=== PATIENT | female | born 1985 | race Caucasian/White ===

== ENCOUNTER 2017-08-22 17:49 | Emergency (ER) | payer SELFPAY ==
[2017-08-22 17:56] VITALS: BP 132/75; PULSE 83; RESP 16; TEMP 36.7; O2SAT 99; BMI 24.6
--- NOTE | 2017-08-22 18:01 | ED.FEMALEGU ---
HPI - Female Genitourinary <STEPH Mckeon - Last Filed: 08/22/17 18:51> General Chief complaint: Urogenital-Female Stated complaint: STATES UTI Time Seen by Provider: 08/22/17 17:55 Source: patient Mode of arrival: ambulatory Limitations: no limitations History of Present Illness HPI Narrative: Patient presents with 1 week of urgency frequency and dysuria. She states she has a history of kidney infections and is concerned that she has a urinary tract infection turning into another kidney infection. She states that she has had fevers, but is unsure of temperature. She complains of chills. She complains of slight nausea but denies vomiting or diarrhea. She denies any flank pain but complains of a lower back ache. She was planning on waiting till Wednesday to go the walk-in, but was afraid she was getting sicker. Denies any vaginal complaints. Related Data Previous Rx's Medication Instructions Recorded nitrofurantoin monohyd/m-cryst 100 mg PO Q12H #14 cap 08/22/17 [Macrobid] Allergies Allergy/AdvReac Type Severity Reaction Status Date / Time No Known Allergies Allergy Uncoded 05/19/17 12:05 Review of Systems <STEPH Mckeon - Last Filed: 08/22/17 18:51> Review of Systems GENERAL: See HPI HEENT: Denies sinus pain, ear pain, sore throat, difficulty swallowing, dizziness. RESPIRATORY: Denies dyspnea, cough, wheezing, hemoptysis, sputum. CARDIOVASCULAR: Denies chest pain, palpitations, orthopnea, edema, GASTROINTESTINAL: Denies nausea, vomiting, abdominal pain, diarrhea, constipation, melena. : See HPI MUSCULOSKELETAL: denies weakness, joint pain, or bony pain SKIN: Denies rash, skin lesions, or other NEUROLOGIC: Denies weakness, headache, numbness, change in speech, confusion, seizures, incoordination. PSYCHIATRIC: No concerning psychosocial issues. 12 point review of systems is negative except for those stated above Exam <STEPH Mckeon - Last Filed: 08/22/17 18:51> Narrative Exam Narrative: GENERAL: This is a well-nourished, well-developed patient, in no acute distress with at bedside. HEAD: Atraumatic. Normocephalic. No temporal or scalp tenderness. EYES: Pupils equal round and reactive. Extraocular motions intact. No scleral icterus. No injection or drainage. ENT: Nose without bleeding, purulent drainage or septal hematoma. Throat without erythema, tonsillar hypertrophy or exudate. Uvula midline. Airway patent. NECK: Trachea midline. No JVD or lymphadenopathy. Supple, nontender, no meningeal signs. CARDIOVASCULAR: Regular rate and rhythm without murmurs, gallops, or rubs. RESPIRATORY: Clear to auscultation. Breath sounds equal bilaterally. No wheezes, rales, or rhonchi. GASTROINTESTINAL: Abdomen soft, non-tender, nondistended. No hepato-splenomegaly, or palpable masses. No guarding. No CVA tenderness bilaterally. No pain to suprapubic palpation. EXTREMITIES: No clubbing, cyanosis, or edema. No joint tenderness, effusion, or edema noted. BACK: Nontender without deformity or crepitance. No flank tenderness. NEURO: AOx3. SKIN: No rash or erythema. Initial Vital Signs Initial Vital Signs: Vital Signs Temperature 98.1 F 08/22/17 17:56 Pulse Rate 83 08/22/17 17:56 Respiratory Rate 16 08/22/17 17:56 Blood Pressure 132/75 H 08/22/17 17:56 Pulse Oximetry 99 08/22/17 17:56 <Ministerio Palomares DO - Last Filed: 08/22/17 20:39> Initial Vital Signs Initial Vital Signs: Vital Signs Temperature 98.1 F 08/22/17 17:56 Pulse Rate 83 08/22/17 17:56 Respiratory Rate 16 08/22/17 17:56 Blood Pressure 132/75 H 08/22/17 17:56 Pulse Oximetry 99 08/22/17 17:56 Course <AIDEE Mckeon-REMIGIO - Last Filed: 08/22/17 18:51> Orders Ordered: ED Orders 08/22/17 18:09 Urine Culture Stat Urine Microscopic Stat Discontinued Medications Nitrofurantoin Macrocrystals (Macrobid 100 Mg Capsule) 100 mg PO NOW ONE Stop: 08/22/17 18:35 Last Admin: 08/22/17 18:37 Dose: 100 mg Reevaluation(s) Reevaluation #1: Discussed results of UA with patient. Discussed 1st dose of antibiotics in the emergency department. Discussed return precautions vomiting, diarrhea, flank pain or fevers. Time: 18:30 Vital Signs - 8 hr 08/22/17 17:56 Temperature 98.1 F Pulse Rate 83 Respiratory Rate 16 Blood Pressure 132/75 H Pulse Oximetry 99 <Ministerio Palomares DO - Last Filed: 08/22/17 20:39> Orders Ordered: ED Orders 08/22/17 18:09 Urine Culture Stat Urine Microscopic Stat Discontinued Medications Nitrofurantoin Macrocrystals (Macrobid 100 Mg Capsule) 100 mg PO NOW ONE Stop: 08/22/17 18:35 Last Admin: 08/22/17 18:37 Dose: 100 mg Vital Signs - 8 hr 08/22/17 17:56 Temperature 98.1 F Pulse Rate 83 Respiratory Rate 16 Blood Pressure 132/75 H Pulse Oximetry 99 MDM - Female Genitourinary <AIDEE Mckeon- - Last Filed: 08/22/17 18:51> Lab Data Attestation: I reviewed the patient's lab results. Lab Results 08/22/17 Range/Units 18:09 Urine RBC 1-5/hpf (0-5/HPF) Urine WBC 10-30/hpf H (0-5/HPF) Ur Squamous Epith Cells 0-1 /hpf Urine Bacteria Moderate (10-30) H (None) Ur Culture Indicated? Specimen cultured Micro UA Comment Not Reportable MDM Narrative Medical decision making narrative: Patient presents with complaint of dysuria, urgency and frequency. Her urinalysis reveals bacteria, WBCs and RBCs. In the emergency department she is afebrile normotensive and not tachycardic. Thus I will begin treatment for urinary tract infection with Macrobid. She was given her 1st dose in the emergency department due to pharmacy closing times. She is given a prescription. I discussed at length with her follow-up if worsening or no improvement, vomiting, diarrhea or fever. <Ministerio Palomares DO - Last Filed: 08/22/17 20:39> Lab Data Lab Results 08/22/17 Range/Units 18:09 Urine RBC 1-5/hpf (0-5/HPF) Urine WBC 10-30/hpf H (0-5/HPF) Ur Squamous Epith Cells 0-1 /hpf Urine Bacteria Moderate (10-30) H (None) Ur Culture Indicated? Specimen cultured Micro UA Comment Not Reportable Discharge Plan Departure Patient Disposition: Home, Self-Care Clinical Impression: Urinary tract infection Discharge Date/Time: 08/22/17 18:55 Interventions: ED Discharge Assessment Last Done: 08/22/17 18:55 Instructions: DI for Urinary Tract Infection (UTI) Activity Restrictions/Additional Instructions: I am starting you on an antibiotic for urinary tract infection. Please be re-evaluated by healthcare provider if you develop high fevers, vomiting, diarrhea or flank pain. These are signs of your infection is possibly getting worse. I am sending out a urine culture to make sure that we chose an appropriate antibiotic for your urinary tract infection. Push fluids and take [id number] pain medication as needed. Prescriptions: New nitrofurantoin monohyd/m-cryst [Macrobid] 100 mg capsule 100 mg PO Q12H Qty: 14 RF: 0 <Ministerio Palomares DO - Last Filed: 08/22/17 20:39> Cosign ED Attending Luz Elena Attestation: I was immediately available in the department for consultation. Documentation has been reviewed. I agree with assessment and plan.
--- NOTE | 2017-08-22 18:11 | ED_ITS ---
HPI - Female Genitourinary <STEPH Mckeon - Last Filed: 08/22/17 18:51> General Chief complaint: Urogenital-Female Stated complaint: STATES UTI Time Seen by Provider: 08/22/17 17:55 Source: patient Mode of arrival: ambulatory Limitations: no limitations History of Present Illness HPI Narrative: Patient presents with 1 week of urgency frequency and dysuria. She states she has a history of kidney infections and is concerned that she has a urinary tract infection turning into another kidney infection. She states that she has had fevers, but is unsure of temperature. She complains of chills. She complains of slight nausea but denies vomiting or diarrhea. She denies any flank pain but complains of a lower back ache. She was planning on waiting till Wednesday to go the walk-in, but was afraid she was getting sicker. Denies any vaginal complaints. Related Data Previous Rx's Medication Instructions Recorded nitrofurantoin monohyd/m-cryst 100 mg PO Q12H #14 cap 08/22/17 [Macrobid] Allergies Allergy/AdvReac Type Severity Reaction Status Date / Time No Known Allergies Allergy Uncoded 05/19/17 12:05 Review of Systems <STEPH Mckeon - Last Filed: 08/22/17 18:51> Review of Systems GENERAL: See HPI HEENT: Denies sinus pain, ear pain, sore throat, difficulty swallowing, dizziness. RESPIRATORY: Denies dyspnea, cough, wheezing, hemoptysis, sputum. CARDIOVASCULAR: Denies chest pain, palpitations, orthopnea, edema, GASTROINTESTINAL: Denies nausea, vomiting, abdominal pain, diarrhea, constipation, melena. : See HPI MUSCULOSKELETAL: denies weakness, joint pain, or bony pain SKIN: Denies rash, skin lesions, or other NEUROLOGIC: Denies weakness, headache, numbness, change in speech, confusion, seizures, incoordination. PSYCHIATRIC: No concerning psychosocial issues. 12 point review of systems is negative except for those stated above Exam <STEPH Mckeon - Last Filed: 08/22/17 18:51> Narrative Exam Narrative: GENERAL: This is a well-nourished, well-developed patient, in no acute distress with at bedside. HEAD: Atraumatic. Normocephalic. No temporal or scalp tenderness. EYES: Pupils equal round and reactive. Extraocular motions intact. No scleral icterus. No injection or drainage. ENT: Nose without bleeding, purulent drainage or septal hematoma. Throat without erythema, tonsillar hypertrophy or exudate. Uvula midline. Airway patent. NECK: Trachea midline. No JVD or lymphadenopathy. Supple, nontender, no meningeal signs. CARDIOVASCULAR: Regular rate and rhythm without murmurs, gallops, or rubs. RESPIRATORY: Clear to auscultation. Breath sounds equal bilaterally. No wheezes , rales, or rhonchi. GASTROINTESTINAL: Abdomen soft, non-tender, nondistended. No hepato-splenomegaly , or palpable masses. No guarding. No CVA tenderness bilaterally. No pain to suprapubic palpation. EXTREMITIES: No clubbing, cyanosis, or edema. No joint tenderness, effusion, or edema noted. BACK: Nontender without deformity or crepitance. No flank tenderness. NEURO: AOx3. SKIN: No rash or erythema. Initial Vital Signs Initial Vital Signs: Vital Signs Temperature 98.1 F 08/22/17 17:56 Pulse Rate 83 08/22/17 17:56 Respiratory Rate 16 08/22/17 17:56 Blood Pressure 132/75 H 08/22/17 17:56 Pulse Oximetry 99 08/22/17 17:56 <Ministerio Palomares DO - Last Filed: 08/22/17 20:39> Initial Vital Signs Initial Vital Signs: Vital Signs Temperature 98.1 F 08/22/17 17:56 Pulse Rate 83 08/22/17 17:56 Respiratory Rate 16 08/22/17 17:56 Blood Pressure 132/75 H 08/22/17 17:56 Pulse Oximetry 99 08/22/17 17:56 Course <AIDEE Mckeon-REMIGIO - Last Filed: 08/22/17 18:51> Orders Ordered: ED Orders 08/22/17 18:09 Urine Culture Stat Urine Microscopic Stat Discontinued Medications Nitrofurantoin Macrocrystals (Macrobid 100 Mg Capsule) 100 mg PO NOW ONE Stop: 08/22/17 18:35 Last Admin: 08/22/17 18:37 Dose: 100 mg Reevaluation(s) Reevaluation #1: Discussed results of UA with patient. Discussed 1st dose of antibiotics in the emergency department. Discussed return precautions vomiting , diarrhea, flank pain or fevers. Time: 18:30 Vital Signs - 8 hr 08/22/17 17:56 Temperature 98.1 F Pulse Rate 83 Respiratory Rate 16 Blood Pressure 132/75 H Pulse Oximetry 99 <Ministerio Palomares DO - Last Filed: 08/22/17 20:39> Orders Ordered: ED Orders 08/22/17 18:09 Urine Culture Stat Urine Microscopic Stat Discontinued Medications Nitrofurantoin Macrocrystals (Macrobid 100 Mg Capsule) 100 mg PO NOW ONE Stop: 08/22/17 18:35 Last Admin: 08/22/17 18:37 Dose: 100 mg Vital Signs - 8 hr 08/22/17 17:56 Temperature 98.1 F Pulse Rate 83 Respiratory Rate 16 Blood Pressure 132/75 H Pulse Oximetry 99 MDM - Female Genitourinary <AIDEE Mckeon- - Last Filed: 08/22/17 18:51> Lab Data Attestation: I reviewed the patient's lab results. Lab Results 08/22/17 Range/Units 18:09 Urine RBC 1-5/hpf (0-5/HPF) Urine WBC 10-30/hpf H (0-5/HPF) Ur Squamous Epith Cells 0-1 /hpf Urine Bacteria Moderate (10-30) H (None) Ur Culture Indicated? Specimen cultured Micro UA Comment Not Reportable MDM Narrative Medical decision making narrative: Patient presents with complaint of dysuria, urgency and frequency. Her urinalysis reveals bacteria, WBCs and RBCs. In the emergency department she is afebrile normotensive and not tachycardic. Thus I will begin treatment for urinary tract infection with Macrobid. She was given her 1st dose in the emergency department due to pharmacy closing times. She is given a prescription. I discussed at length with her follow-up if worsening or no improvement, vomiting, diarrhea or fever. <Ministerio Palomares DO - Last Filed: 08/22/17 20:39> Lab Data Lab Results 08/22/17 Range/Units 18:09 Urine RBC 1-5/hpf (0-5/HPF) Urine WBC 10-30/hpf H (0-5/HPF) Ur Squamous Epith Cells 0-1 /hpf Urine Bacteria Moderate (10-30) H (None) Ur Culture Indicated? Specimen cultured Micro UA Comment Not Reportable Discharge Plan Departure Patient Disposition: Home, Self-Care Clinical Impression: Urinary tract infection Discharge Date/Time: 08/22/17 18:55 Interventions: ED Discharge Assessment Last Done: 08/22/17 18:55 Instructions: DI for Urinary Tract Infection (UTI) Activity Restrictions/Additional Instructions: I am starting you on an antibiotic for urinary tract infection. Please be re- evaluated by healthcare provider if you develop high fevers, vomiting, diarrhea or flank pain. These are signs of your infection is possibly getting worse. I am sending out a urine culture to make sure that we chose an appropriate antibiotic for your urinary tract infection. Push fluids and take over-the- counter pain medication as needed. Prescriptions: New nitrofurantoin monohyd/m-cryst [Macrobid] 100 mg capsule 100 mg PO Q12H Qty: 14 RF: 0 <Ministerio Palomares DO - Last Filed: 08/22/17 20:39> Cosign ED Attending Luz Elena Attestation: I was immediately available in the department for consultation. Documentation has been reviewed. I agree with assessment and plan.
[2017-08-22 18:22] LABS: Bacteria Urine Moderate (10-30); Culture Indicated Urine Specimen Cultured; RBC Urine 1-5/HPF (0-5/HPF); Squamous Epithelial Cell Urine 0-1 /HPF; WBC Urine 10-30/HPF (0-5/HPF)
[2017-08-22] MEDS: NITROFURANTOIN ER 100 MG CAPSULE PO (18:37)
== END 2017-08-22 18:55 | disposition home or self-care (01) ==
PROVIDERS: Emergency Provider Nurse Practitioner Family
DX: N39.0 Urinary tract infection, site not specified (principal)
CPT/HCPCS: 81003; 81015; 81025; 87077; 87086; 87186; 99282; 99283

== ENCOUNTER 2018-05-20 21:56 | Emergency (ER) | payer SELFPAY ==
[2018-05-20 22:01] VITALS: BP 144/91; PULSE 101; RESP 18; TEMP 36.7; O2SAT 100; BMI 25.8
--- NOTE | 2018-05-20 22:10 | PC.NURSE ---
She c/o nasal and head congestion affecting her ears.denies any pain.
--- NOTE | 2018-05-20 22:17 | ED.EAR ---
HPI - Ear Problem General Chief complaint: Ear Stated complaint: PLUGGED EARS Time Seen by Provider: 05/20/18 22:17 Source: patient Mode of arrival: ambulatory Limitations: no limitations History of Present Illness HPI Narrative: Patient is a 32-year-old female who presents with nasal congestion and bilateral ear plugging for the last 6 days. She has no fever she has no neck pain no headache no facial pressure. She has seasonal allergies she takes loratadine [id number], which she says does help. She has no chest pain no cough. MD Complaint: decreased hearing Location: bilateral Duration: constant Severity: moderate Relieving factors: nothing Exacerbating factors: nothing Discharge from ear: no Associated symptoms ear: decreased hearing Related Data Previous Rx's Medication Instructions Recorded nitrofurantoin monohyd/m-cryst 100 mg PO Q12H #14 cap 08/22/17 [Macrobid] Allergies Allergy/AdvReac Type Severity Reaction Status Date / Time No Known Allergies Allergy Uncoded 05/19/17 12:05 Review of Systems Review of Systems ROS Unobtainable: All systems reviewed & are unremarkable except as noted in HPI and below Eyes Denies change in vision, Denies eye discharge, Denies irritation and Denies loss of vision ENT Ears, Nose, Mouth, and Throat: Reports as per HPI Cardiovascular Denies chest pain, Denies irregular heart rhythm, Denies lightheadedness, Denies palpitations, Denies dyspnea, Denies dyspnea on exertion and Denies orthopnea Respiratory Denies cough, Denies dyspnea, Denies dyspnea on exertion and Denies wheezing Gastrointestinal Gastrointestinal: Denies abdominal pain, Denies change in bowel habits, Denies diarrhea, Denies nausea and Denies vomiting Musculoskeletal Denies back pain, Denies muscle weakness, Denies numbness and Denies tingling Integumentary/Breasts Denies pruritus, Denies erythema, Denies rash and Denies wounds Neurologic Denies loss of vision, Denies numbness and Denies tingling Endocrine Denies palpitations Allergic/Immunologic Denies wheezing [facility] Medical History Seasonal allergies (Acute) Social History Smoking Status: Current every day smoker Social History Smoking Status: Current every day smoker Exam Initial Vital Signs Initial Vital Signs: Vital Signs Temperature 98.0 F 05/20/18 22:01 Pulse Rate 101 H 05/20/18 22:01 Respiratory Rate 18 05/20/18 22:01 Blood Pressure 144/91 H 05/20/18 22:01 Pulse Oximetry 100 05/20/18 22:01 GENERAL: Well-appearing, well-nourished and in no acute distress. HEENT: Head atraumatic,EOMI, pupils reactive, no facial tenderness. Neck is supple no meningeal signs EARS: Tympanic membranes visualized, no erythema or bulging, no hemotympanum PHARYNX: No erythema, no tonsillar exudate, no cervical lymphadenopathy CARDIOVASCULAR: Regular rate and rhythm without murmurs, rubs or gallops. RESPIRATORY: Breath sounds equal bilaterally, no wheezes rales or rhonchi. ABDOMEN: Soft, nontender. Normoactive bowel sounds all 4 quadrants. No guarding or rebound. EXTREMITIES: Normal range of motion, no clubbing or edema. Neurovascularly intact NEUROLOGICAL: Alert and oriented x4.Normal gait and speech. Cranial nerves II through XII grossly intact. SKIN: Warm, dry, no laceration, no petechiae, no rashes or lesions. Course Vital Signs - 8 hr 05/20/18 22:01 Temperature 98.0 F Pulse Rate 101 H Respiratory Rate 18 Blood Pressure 144/91 H Pulse Oximetry 100 Discharge Plan Departure Patient Disposition: Home Clinical Impression: Acute seasonal allergic rhinitis Discharge Date/Time: 05/20/18 22:34 Interventions: ED Discharge Assessment Last Done: 05/20/18 22:33 Instructions: Allergic Rhinitis Activity Restrictions/Additional Instructions: *You have been diagnosed with seasonal allergy *What to do: At this time there is no indication for any antibiotic. Ears are clear. Decreased hearing is likely from nasal congestion and allergies. *Continue to take medications as directed Recommend [id number] nasal saline May try Afrin as directed but do not use for more than 2 days it will cause rebound congestion worse than now *Follow up with your primary care provider in 2-3 days *Return to ER if you should have fever , worsening headache, neck or any new, worsening or concerning symptoms Prescriptions: No Action nitrofurantoin monohyd/m-cryst [Macrobid] 100 mg capsule 100 mg PO Q12H Qty: 14 RF: 0
== END 2018-05-20 22:34 | disposition home or self-care (01) ==
PROVIDERS: Emergency Provider Emergency Medicine
DX: J30.2 Other seasonal allergic rhinitis (principal)
CPT/HCPCS: 99282

== ENCOUNTER 2018-07-16 13:22 | Emergency (ER) | payer OTHER, SELFPAY ==
[2018-07-16 13:31] VITALS: BP 143/82; PULSE 80; RESP 18; TEMP 36.9; O2SAT 100; BMI 25.8
[2018-07-16] MEDS: TET,DIPH,PERTUSS(ACELL),VAC/PF 0.5 ML SYRINGE IM (13:31)
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
[2018-07-16] MEDS: KETOROLAC 60 MG/2 ML VIAL IM (13:52)
== END 2018-07-16 14:46 | disposition home or self-care (01) ==
PROVIDERS: Emergency Provider Nurse Practitioner Family
DX: T21.01XA Burn of unspecified degree of chest wall, initial encounter (principal); X12.XXXA Contact with other hot fluids, initial encounter; Y99.0 Civilian activity done for income or pay; Z23 Encounter for immunization
CPT/HCPCS: 90471; 96372; 99282; 99283; 90715; J1885

== ENCOUNTER 2019-02-04 16:29 | Emergency (ER) | payer MEDICAID, SELFPAY ==
[2019-02-04 16:30] VITALS: BP 138/96; PULSE 75; RESP 18; TEMP 36.4; O2SAT 98
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
== END 2019-02-04 16:53 | disposition home or self-care (01) ==
PROVIDERS: Emergency Provider Emergency Medicine
DX: H11.31 Conjunctival hemorrhage, right eye (principal)
CPT/HCPCS: 99281

== ENCOUNTER 2020-11-20 19:24 | Emergency (ER) | payer OTHER, MEDICAID, SELFPAY ==
[2020-11-20 19:33] VITALS: PULSE 110; RESP 18; TEMP 36.8; O2SAT 99
--- NOTE | 2020-11-20 19:36 | DI.RAD.S_ITS ---
PROCEDURE: XR CHEST 2V INDICATIONS: soa/cough TECHNIQUE: 2 views of the chest were acquired. COMPARISON: None. FINDINGS: Surgical changes and devices: Bilateral nipple piercings. Lungs and pleura: Lungs are clear. No pleural effusions or pneumothorax. Mediastinum: Mediastinal contours are normal. Heart size is normal. Bones and chest wall: No suspicious bony abnormalities. Soft tissues appear unremarkable. IMPRESSION: No acute cardiopulmonary disease process. Dictated by: Cyndie Camacho MD, PhD on 11/20/2020 at 19:52 Approved by: Cyndie Camacho MD, PhD on 11/20/2020 at 19:52
[2020-11-20 20:09] LABS: COVID19 -Nasal RAPID Negative (Negative)
--- NOTE | 2020-11-20 21:06 | ED_ITS ---
HPI - SOB/Dyspnea General Chief Complaint: Upper Respiratory Symptoms Stated Complaint: SOB, chest hurts, body aches Time Seen by Provider: 11/20/20 21:06 Source: patient Mode of arrival: Ambulatory Limitations: no limitations History of Present Illness HPI Narrative: This is a 35-year-old female comes emergency department with complaint of myalgias, cough with mild yellow sputum, chest discomfort, shortness of breath. Patient states that she has been afebrile. She has had less than 24 hours of symptoms. Patient states symptoms started about 1:00 a.m. in the morning today. Patient has not had any vomiting. She does not eyes any diarrhea or constipation. She noted he she urinated a little bit more frequently today but no dysuria or sense of urgency or retention. No black or bloody stools. No rashes or skin changes. She denies any other medical issues. No major prior surgeries. No known drug allergies. She does note she has some seasonal allergies. She does smoke occasional alcohol, no illicit. 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 Related Data Previous Rx's Medication Instructions Recorded nitrofurantoin 100 mg PO Q12H #14 cap 08/22/17 monohydrate/macrocrystals 100 mg capsule (Macrobid) Allergies Allergy/AdvReac Type Severity Reaction Status Date / Time No Known Drug Allergies Allergy Verified 07/16/18 13:31 Review of Systems Review of Systems ROS Unobtainable: All systems reviewed & are unremarkable except as noted in HPI and below Patient History Medical History (Updated 11/20/20 @ 21:49 by Georgie Leos DO) Seasonal allergies Social History Smoking Status: Current every day smoker Smoking Status: Current every day smoker tobacco type: cigarettes alcohol intake frequency: 0-2 drinks per day Substance Use Type: does not use Exam Narrative Exam Narrative: GEN: well nourished, well appearing female, alert and oriented x 3, patient appears to be in mild distress. HEENT: Atraumatic, pupils are equal round reactive to light, extraocular movements are intact. HEART: Regular rate and rhythm without murmur, clicks, rubs. LUNGS:Lungs clear to auscultation, no wheezes, rales, crackles, chest moves symmetrically ABD:bowel sounds normal, soft, non-tender, no guarding, rebound, rigidity, no masses noted, no hepatosplenomegaly :No CVA tenderness MSCL: Non-tender, no muscle atrophy, full range of motion, normal gait NEURO:CN 2-12 intact, sensation normal SKIN: No rash, erythema or other skin changes noted. Initial Vital Signs Initial Vital Signs: Vital Signs Temperature 98.2 F 11/20/20 19:33 Pulse Rate 110 H 11/20/20 19:33 Respiratory Rate 18 11/20/20 19:33 Pulse Oximetry 99 11/20/20 19:33 Course Orders Ordered: ED Orders 11/20/20 19:36 Chest [XR chest 2V] Stat COVID19 -Nasal swab/Pre-Proc Stat Vital Signs Vital signs: Vital Signs - 8 hr 11/20/20 19:33 11/20/20 22:03 Temperature 98.2 F 98.5 F Pulse Rate 110 H Respiratory Rate 18 Pulse Oximetry 99 103 H MDM - SOB/Dyspnea Lab Data Labs: Lab Results 11/20/20 Range/Units 19:36 SARS-CoV-2 (PCR) Negative (Negative) Imaging Data Chest x-ray: Radiologist's Impression: [place] [address] XRay Report Signed Patient: Shani Paige MR#: [id number] : 1985 Acct:[id number] Age/Sex: 35 / F Date of Service: 11/20/20 Loc: ED Accession Number: [id number] ?? Procedure: XR chest 2V Ordering Provider: Georgie Leos D.O. PROCEDURE:? XR CHEST 2V ? INDICATIONS:? soa/cough ? TECHNIQUE:? 2 views of the chest were acquired.? ? COMPARISON:? None. ? FINDINGS:? ? Surgical changes and devices:? Bilateral nipple piercings.? ? Lungs and pleura:? Lungs are clear.? No pleural effusions or pneumothorax.? ? Mediastinum:? Mediastinal contours are normal.? Heart size is normal.? ? Bones and chest wall:? No suspicious bony abnormalities.? Soft tissues appear unremarkable.? ? IMPRESSION:? No acute cardiopulmonary disease process. ? ? Dictated by: Cyndie Camacho MD, PhD on 11/20/2020 at 19:52 ? ? Approved by: Cyndie Camacho MD, PhD on 11/20/2020 at 19:52?? MDM Narrative Medical decision making narrative: This is a 35-year-old female comes in with viral type symptoms with cough, myalgias and congestion. Her initial COVID swab is negative. We did discuss she has not even had 24 hours of symptoms so this could potentially be a false negative. Chest x-ray is reassuring. The patient was slightly tachycardic here in the department. We discussed there are also other potential viral causes. She continues to have symptoms over the next several days may be worthwhile to have a 2nd COVID swab to re-evaluate. Return precautions were discussed and patient is feeling were she was asked to return for another evaluation. Discharge Plan Departure Patient Disposition: Home Clinical Impression: Upper respiratory infection Instructions: DI for Viral Upper Respiratory Infection -- Adult Activity Restrictions/Additional Instructions: Your covid swab is negative but with less than 24 hours of symptoms it could be a potentially too early to test positive. Would be appropriate if you continue to have symptoms in the next 3 days to be rechecked. Your chest x-ray today is negative. You may take ibuprofen up to 800 mg every 8 hours and/or Tylenol up to a 1000 mg as needed for muscle aches or pain. You may use [id number] cough medication. Please return for new or worsening chest pain, shortness of breath, passing out, persistent vomiting, black or bloody stools or other new or concerning symptoms. Prescriptions: No Action nitrofurantoin monohyd/m-cryst [Macrobid] 100 mg capsule 100 mg PO Q12H Qty: 14 RF: 0
[2020-11-20 22:03] VITALS: TEMP 36.9; O2SAT 103
== END 2020-11-20 22:04 | disposition home or self-care (01) ==
PROVIDERS: Emergency Provider Emergency Medicine
DX: J06.9 Acute upper respiratory infection, unspecified (principal); Z20.822 Contact with and (suspected) exposure to COVID-19
CPT/HCPCS: 71046; 87635; 99281; 99283; C9803